=== PATIENT | male | born 1970 | race Caucasian/White ===

== ENCOUNTER 2017-08-08 14:04 | Inpatient (IN) | payer BC, MEDICAID ==
--- NOTE | 2017-08-08 14:39 | C.PDOC ---
History Of Present Illness PRESCREEN FOR DETOX FROM HEROIN. LAST USE THIS MORNING. CURRENTLY CO TRACY. DENIES "USUAL WITHDRAWAL SYMPTOMS". HO CHRONIC SCALP WOUND CURRENTLY BEING EVAL @ [facility], PENDING SKIN GRAFT " UNTIL MORE SKIN GROWS IN". CURRENTLY DOING WET-TO-DRY DRESSING. CHRONIC LEG, ABD WALL AND UPPER BACK WOUNDS FROM PRIOR NEEDLE INSERTION. NO PAIN, REDNESS, DC , FEVER. HO CHRONIC B/L LEG NEUROPATHY DUE TO DM. HO AFIB, CURRENTLY NONCOMPLIANT W ANTICOAG USE. PRIOR HO CARDIOVERSION FOR SAME "BUT IT DIDNT WORK " EXAM NAD NONTOXIC PSYCH CALM COOPERATIVE NO ACUTE DIST NO S/S ACUTE INTOX OR WITHDRAWAL SKIN MULTIPLE CHRONIC WOUNDS, CRATER-LIKE B/L LEGS, ABD WALL. NO ABSCESS, DC, REDNESS. +CHRONIC SCALP WOUND W GRANULOMATOUS TISSUE, NONNECROTIC, CELLULITIS, DC. REMAINDER NEG Time Seen by Provider: 08/08/17 14:18 Chief Complaint (Nursing): Substance Abuse History Per: Patient History/Exam Limitations: no limitations Onset/Duration Of Symptoms: Persistent Current Symptoms Are (Timing): Still Present Modifying Factor(s): Narcotics Associated Symptoms: denies: Suicidal Thoughts, Suicidal Plan Recent travel outside of the [place]: No Past Medical History Reviewed: Historical Data, Nursing Documentation, Vital Signs Vital Signs: Last Vital Signs Temp 97.6 F 08/08/17 16:15 Pulse 87 08/08/17 16:15 Resp 18 08/08/17 16:15 BP 111/77 08/08/17 16:15 Pulse Ox 100 08/08/17 18:31 - Medical History PMH: No Chronic Diseases Family History: States: Unknown Family Hx Review Of Systems Except As Marked, All Systems Reviewed And Found Negative. Constitutional: Negative for: Fever, Chills Cardiovascular: Negative for: Chest Pain, Palpitations Respiratory: Negative for: Cough, Shortness of Breath, Wheezing Gastrointestinal: Negative for: Nausea, Vomiting, Abdominal Pain Skin: Positive for: Lesions (CHRONIC SCALP WOUND) Neurological: Positive for: Headache. Negative for: Dizziness Psych: Negative for: Withdrawal Physical Exam - Physical Exam Appears: Non-toxic, No Acute Distress Skin: Warm, Dry, Other (SKIN MULTIPLE CHRONIC WOUNDS, CRATER-LIKE B/L LEGS, ABD WALL. NO ABSCESS, DC, REDNESS. ) Head: Atraumatic, Normacephalic, Other (+CHRONIC SCALP WOUND W GRANULOMATOUS TISSUE, NONNECROTIC, CELLULITIS, DC. ) Eye(s): bilateral: Normal Inspection Chest: Symmetrical Cardiovascular: Rhythm Regular Respiratory: Normal Breath Sounds, No Rales, No Rhonchi, No Wheezing Gastrointestinal/Abdominal: Soft, No Tenderness, No Guarding, No Rebound, Other (SEE SKIN EXAM) Back: Normal Inspection Extremity: Normal ROM, Other (SEE SKIN EXAM) Neurological/Psych: Oriented x3, Other (PSYCH CALM COOPERATIVE NO ACUTE DIST NO S/S ACUTE INTOX OR WITHDRAWAL) ED Course And Treatment - Laboratory Results Result Diagrams: 08/08/17 16:09 08/08/17 16:09 ECG: Interpreted By Me ECG Rhythm: Atrial Fibrillation Rate From EC O2 Sat by Pulse Oximetry: 100 (RA) Pulse Ox Interpretation: Normal Progress - Re-Evaluation Re-evaluation Note: 08/08/17 14:39 TYLENOL, CLONIDINE, ZOFRAN, MOTRIN. BLOODWORK. CRISIS EVAL. 08/08/17 18:02 MEDICALLY CLEARED FOR PSYCH EVAL. CHRONIC WOUNDS CURRENTLY MANAGED BY PLASTIC SURGEON @ [facility]. RECOMMEND MEDICINE CONSULT NEEDED FOR MANAGEMENT OF AFIB AND DIABETES. CRISIS NOTIFIED 08/08/17 18:31 - Data Reviewed Data Reviewed: Lab, Diagnostic imaging, EKG, Old records Disposition Counseled Patient/Family Regarding: Studies Performed, Diagnosis - Disposition Disposition: HOSPITALIZED Disposition Time: 18:20 Condition: STABLE - POA Present On Arrival: Poor Glycemic Control - Clinical Impression Clinical Impression: Narcotic dependence, Chronic wound of head, Chronic wound of extremity - Scribe Statement The provider has reviewed the documentation as recorded by the Scribe SM All medical record entries made by the Scribe were at my direction and personally dictated by me. I have reviewed the chart and agree that the record accurately reflects my personal performance of the history, physical exam, medical decision making, and the department course for this patient. I have also personally directed, reviewed, and agree with the discharge instructions and disposition. Decision To Admit - Pt Status Changed To: Hospital Disposition Of: Inpatient - Admit Certification Admit to Inpatient:: After my assessment, the patient will require hospitalization for at least two midnights. This is because of the severity of symptoms shown, intensity of services needed, and/or the medical risk in this patient being treated as an outpatient. - InPatient: Physician Admission Certification: I certify that this patient requires 2 or more midnights of care for the following reason:: SEE NOTE - . Bed Request Type: Detox Admitting Physician: Salvatore Osborn Patient Diagnosis: Narcotic dependence, Chronic wound of head, Chronic wound of extremity
[2017-08-08 16:28] LABS: CHLORIDE 101 mmol/L (98-107)
[2017-08-08 16:29] LABS: SODIUM 131 mmol/L (132-148)
[2017-08-08 16:30] LABS: POTASSIUM 5.6 mmol/L (3.6-5.2)
[2017-08-08 16:31] LABS: ALB/GLOB RATIO 0.7 (1.0-2.1); ALKALINE PHOSPHATASE 97 U/L (38-126); AST/SGOT 33 U/L (17-59); BILIRUBIN,TOTAL 1.5 mg/dL (0.2-1.3); BLOOD UREA NITROGEN 22 mg/dL (9-20); CARBON DIOXIDE 24 mmol/L (22-30); GFR AFRICAN-AMERICAN > 60; TOTAL PROTEIN 8.7 g/dL (6.3-8.3)
[2017-08-08 16:32] LABS: ALCOHOL SERUM < 10 mg/dl (0-10); ALT/SGPT 17 U/L (21-72); CALCIUM 7.9 mg/dl (8.6-10.4); GLUCOSE,RANDOM 179 mg/dL (75-110)
[2017-08-08 16:34] LABS: BASO # 0.1 K/uL (0.0-0.2); BASO % 0.7 % (0.0-2.0); EOS # 0.2 K/uL (0.0-0.7); EOS % 1.5 % (0.0-4.0); HEMATOCRIT 38.3 % (35.0-51.0); LYMPH # 2.4 K/uL (1.0-4.3); LYMPH % 17.9 % (20.0-40.0); MEAN CELL VOLUME 81.1 fL (80.0-94.0); MEAN CORPUSCULAR HEMOGLOBIN 25.8 pg (27.0-31.0); MEAN CORPUSCULAR HGB CONC 31.8 g/dL (33.0-37.0); MEAN PLATELET VOLUME 8.3 fL (7.2-11.7); MONO # 0.8 K/uL (0.0-0.8); MONO % 5.8 % (0.0-10.0); NRBC % 0.2 % (0.0-2.0); RED CELL DISTRIBUTION WIDTH 16.7 % (11.5-14.5); WHITE BLOOD COUNT 13.4 K/uL (4.8-10.8)
[2017-08-08 17:29] LABS: RBC URINE 4 /hpf (0-3); URINE BACTERIA RARE (<OCC); URINE BILIRUBIN NEGATIVE (NEGATIVE); URINE BLOOD 1+ (NEGATIVE); URINE COLOR Yellow (YELLOW); URINE GLUCOSE (UA) 1+ mg/dL (Normal); URINE KETONE NEGATIVE (NEGATIVE); URINE LEUKOCYTE ESTERASE NEG Leu/uL (Negative); URINE PROTEIN 2+ mg/dL (NEGATIVE); WBC URINE 1 /hpf (0-5)
[2017-08-08] MEDS: (Lantus) Insulin Glargine, Recombinant SC SCH (22:32)
--- NOTE | 2017-08-09 11:44 | CARD ---
APPROVED REPORT EKG Measurement Heart [id number] <Conclusion> Atrial fibrillation Right axis deviation Abnormal ECG
--- NOTE | 2017-08-09 12:43 | PCM.PSYCH ---
Initial Psychiatric Evaluation - Initial Psychiatric Evaluation Type of Admission: Voluntary Legal Status: Capacity Chief Complaint (in patient's own words): "I'm withdrawing bad" History of Present Illness and Precipitating Events: The patient is seen, chart reviewed and case discussed. This is a 47-year-old male, but no child, unemployed and lives with his . He is a poor historian due to withdrawal symptoms. He uses 20 bags of IV heroin for "many years" He relapsed 5 years ago he states and has been using since then. He also uses Xanax sometimes and it can be up to 2 sticks a day. Smokes 1 pack per day cigarettes but denies alcohol, marijuana and all other drugs. He has been to detox at least 10 times, rehabilitation 5 times and he wants to go to outpatient program in [facility] Past psych history: Denies Family psych history: Denies Medical history: A. fib, diabetes, high blood pressure, obese. Current Medications: Active Medications Generic Name Dose Route Start Last Admin Trade Name Freq PRN Reason Stop Dose Admin Aspirin 81 mg 08/09/17 12:00 08/09/17 12:28 Aspirin Chewable PO 81 mg DAILY VIOLETA Administration Clonidine HCl 0.1 mg 08/09/17 09:55 Catapres PO Q4H PRN opiate withdrawal Furosemide 20 mg 08/09/17 10:00 08/09/17 11:45 Lasix PO 20 mg DAILY VIOLETA Administration Gabapentin 400 mg 08/09/17 10:00 08/09/17 10:16 Neurontin PO 400 mg TID VIOLETA Administration Hydroxyzine HCl 25 mg 08/08/17 20:22 Atarax PO Q6 PRN Anxiety Insulin Glargine 15 unit 08/08/17 22:00 08/08/17 22:32 Lantus SC 15 unit HS VIOLETA Administration Losartan Potassium 100 mg 08/09/17 10:00 08/09/17 11:44 Cozaar PO 100 mg DAILY VIOLETA Administration Metformin HCl 1,000 mg 08/09/17 10:00 08/09/17 10:00 Glucophage PO 1,000 mg BID VIOLETA Administration Methadone HCl 30 mg 08/09/17 10:00 08/09/17 10:16 Methadone PO 08/15/17 09:59 30 mg Q24H VIOLETA Administration Taper Nicotine 1 patch 08/09/17 10:15 08/09/17 11:48 Nicoderm Cq TD 1 patch DAILY VIOLETA Administration Trazodone HCl 100 mg 08/09/17 09:54 Desyrel PO HS PRN Insomnia Past Psychiatric History - Past Psychiatric History Previous Treatment History: None Pertinent Medical Hx (Current Medical&Sleep Prob, Allergies): Allergies Allergy/AdvReac Type Severity Reaction Status Date / Time No Known Allergies Allergy Verified 08/08/17 14:10 Aspirin [Adult Low Dose Aspirin EC] 81 mg PO DAILY 08/08/17 Canagliflozin/Metformin HCl [Invokamet 150 mg-1000 mg] 1 tab PO BID 08/08/17 Furosemide [Lasix] 20 mg PO DAILY 08/08/17 Insulin Degludec [Tresiba Flextouch U-100] 15 unit SQ HS 08/08/17 Losartan Potassium [Cozaar] 100 mg PO DAILY 08/08/17 Omeprazole 40 mg PO DAILY 08/08/17 Review of Systems - Neurological Neurological: UNREMARKABLE - Psychiatric Psychiatric: Abnormal Sleep Pattern, Anxiety, Change in Appetite, Difficulty Concentrating, Irritability. absent: Hallucinations, Homicidal Ideation, Paranoia, Suicidal Ideation Mental Status Examination - Personal Presentation Personal Presentation: Looks older than stated age - Affect Affect: Constricted - Motor Activity Motor Activity: Calm - Reliability in Providing Information Reliability in Providing Information: Good - Speech Speech: Organized - Mood Mood: Anxious - Formal Thought Process Formal Thought Process: No Impairment - Cognitive Functions Orientation: Person, Place, Situation, Time Sensorium: Alert Attention/Concentration: Attentive Estimate of Intelligence: Average Judgement: Intact, as evidence by: Insight regarding need for hospitalization Memory: Recent intact, as evidence by: Ability to recall events of the day, Remote intact, as evidenced by: Abilit to recall sig. life events - Risk Risk: Diminished functioning - Strength & Assets Inventory Strength & Assets Inventory: Cooperative - Limitations Limitations: Other DSM 5 DX - DSM 5 DSM 5 Diagnosis: Opioid withdrawal Opioid use d/o - severe Tobacco use d/o - severe Sedative, hypnotic use d/o- moderate - Recommended/Plan of Treatment Treatment Recommendations and Plan of Treatment: Methadone detox - starting with 30 mg as he claims anything less did not work in the past Wound nurse Medical consult if needed As needed medications Gabapentin for augmentation Attend groups and activities Supportive therapy and psychoeducation [place] for abstinence CBT for relapse prevention Encourage MAT Refer to rehab or IOP Attend self-help groups as well 34 min Projected ELOS: 5-6 days Prognosis: Good with treatment - Smoking Cessation Smoking Cessation Initiated: Yes
[2017-08-09] MEDS: (Lantus) Insulin Glargine, Recombinant SC SCH (21:51)
[2017-08-10] MEDS: (Lantus) Insulin Glargine, Recombinant SC SCH (21:28)
--- NOTE | 2017-08-11 13:40 | PCM.PYCHPN ---
Psychiatric Progress Note - Psychiatric Progress Note Patient seen today, length of contact: 16 min Patient Chief Complaint: "I'm still not well yet" Problems Identified/Issues Discussed: The pt is seen, chart reviewed, case discussed with staff. The pt is compliant with medications and reports no side-effects. Symptoms are improving but needs more time to stabilize. After care discussed, support and psychoeducation given. Medication Change: Yes (detox changes daily) Medical Record Reviewed: Yes Mental Status Examination - Cognitive Function Orientation: Person, Place, Situation, Time Memory: Impaired Attention: Poor Concentration: Poor Association: WNL Fund of Knowledge: WNL - Mood Mood: Anxious - Affect Affect: Constricted - Speech Speech: Appropriate - Formal Thought Process Formal Thought Process: No Impairment - Suicidal Ideation Suicidal Ideation: No - Homicidal Ideation Homicidal Ideation: No Goal/Treatment Plan - Goal/Treatment Plan Need for Continued Stay: Discharge may exacerbated symptoms, Severe functional impairment Progress Toward Problem(s) and Goals/Treatment Plan: Methadone detox continues Wound nurse - help appreciated. Medical consult if needed As needed medications Gabapentin for augmentation Attend groups and activities Supportive therapy and psychoeducation [place] for abstinence CBT for relapse prevention Encourage MAT Refer to rehab or IOP Attend self-help groups as well Estimated Date of D/C: 08/14/17
[2017-08-11 17:18] VITALS: RESP 18
[2017-08-11] MEDS: (Lantus) Insulin Glargine, Recombinant SC SCH (21:49)
--- NOTE | 2017-08-12 10:33 | PCM.PYCHPN ---
Psychiatric Progress Note - Psychiatric Progress Note Patient seen today, length of contact: 17 min Patient Chief Complaint: I am feeling little better Problems Identified/Issues Discussed: Patient seen and evaluated, chart reviewed and discussed with the nurse. The patient reports improvement in his mood but still reports withdrawal symptoms including joint pains, anxiety, headaches and sweating. Patient has some anxiety but denies any suicidal ideation or homicidal ideation. Patient is taking medications and denies any side effects. He needs more time to stabilize. He received methadone 15 mg today. Supportive therapy and psychoeducation were given. Medication Change: Yes (methadone taper) Medical Record Reviewed: Yes Mental Status Examination - Cognitive Function Orientation: Person, Place, Situation, Time Memory: Intact Attention: WNL Concentration: Poor Association: WNL Fund of Knowledge: Poor - Mood Mood: Anxious - Affect Affect: Constricted - Speech Speech: Soft - Formal Thought Process Formal Thought Process: No Impairment - Suicidal Ideation Suicidal Ideation: No - Homicidal Ideation Homicidal Ideation: No Goal/Treatment Plan - Goal/Treatment Plan Need for Continued Stay: Discharge may exacerbated symptoms, Severe functional impairment Progress Toward Problem(s) and Goals/Treatment Plan: Opioid withdrawal Opioid use d/o - severe Tobacco use d/o - severe Sedative, hypnotic use d/o- moderate Methadone taper Wound nurse Medical consult if needed As needed medications Gabapentin for augmentation Attend groups and activities Supportive therapy and psychoeducation [place] for abstinence CBT for relapse prevention Encourage MAT Refer to rehab or IOP Attend self-help groups as well - Smoking Cessation Smoking Cessation Initiated: No
--- NOTE | 2017-08-12 11:02 | PCM.PYCHPN ---
Psychiatric Progress Note - Psychiatric Progress Note Patient seen today, length of contact: 17 min Patient Chief Complaint: "I'm still not well yet" Problems Identified/Issues Discussed: The pt is seen, chart reviewed, case discussed with staff. The pt is compliant with medications and reports no side-effects. Symptoms are improving but needs more time to stabilize. After care discussed, support and psychoeducation given. He is less irate and a little more cooperative Sleep is still an issue - addressed Medication Change: Yes (detox changes daily) Medical Record Reviewed: Yes Mental Status Examination - Cognitive Function Orientation: Person, Place, Situation, Time Memory: Impaired Attention: Poor Concentration: Poor Association: WNL Fund of Knowledge: WNL - Mood Mood: Anxious - Affect Affect: Constricted - Speech Speech: Appropriate - Formal Thought Process Formal Thought Process: No Impairment - Suicidal Ideation Suicidal Ideation: No - Homicidal Ideation Homicidal Ideation: No Goal/Treatment Plan - Goal/Treatment Plan Need for Continued Stay: Discharge may exacerbated symptoms, Severe functional impairment Progress Toward Problem(s) and Goals/Treatment Plan: Methadone detox continues Wound nurse - help appreciated. Medical consult if needed As needed medications Gabapentin for augmentation Attend groups and activities Supportive therapy and psychoeducation [place] for abstinence CBT for relapse prevention Encourage MAT Refer to rehab or IOP Attend self-help groups as well Estimated Date of D/C: 08/14/17
[2017-08-12] MEDS: (Lantus) Insulin Glargine, Recombinant SC SCH (21:54)
--- NOTE | 2017-08-13 10:58 | PCM.PYCHPN ---
Psychiatric Progress Note - Psychiatric Progress Note Patient seen today, length of contact: 17 min Patient Chief Complaint: I am doing better.' Problems Identified/Issues Discussed: Patient seen and evaluated, chart reviewed and discussed with the nurse. The patient reports improvement in the withdrawal symptoms. He reports that methadone is working and denies any side effects. Patient has some anxiety and denies any suicidal ideation or homicidal ideation. He received methadone 10 mg today. He needs more time to stabilize. Supportive therapy and psychoeducation were given. Medication Change: Yes (detox changes daily) Medical Record Reviewed: Yes Mental Status Examination - Cognitive Function Orientation: Person, Place, Situation, Time Memory: Impaired Attention: WNL Concentration: Poor Association: WNL Fund of Knowledge: WNL - Mood Mood: Anxious - Affect Affect: Constricted - Speech Speech: Appropriate - Formal Thought Process Formal Thought Process: No Impairment - Suicidal Ideation Suicidal Ideation: No - Homicidal Ideation Homicidal Ideation: No Goal/Treatment Plan - Goal/Treatment Plan Need for Continued Stay: Discharge may exacerbated symptoms, Severe functional impairment Progress Toward Problem(s) and Goals/Treatment Plan: Opioid withdrawal Opioid use d/o - severe Tobacco use d/o - severe Sedative, hypnotic use d/o- moderate Methadone detox Wound nurse Medical consult if needed As needed medications Gabapentin for augmentation Attend groups and activities Supportive therapy and psychoeducation [place] for abstinence CBT for relapse prevention Encourage MAT Refer to rehab or IOP Attend self-help groups as well Estimated Date of D/C: 08/14/17
[2017-08-13 15:41] VITALS: O2SAT 98
[2017-08-13] MEDS: (Lantus) Insulin Glargine, Recombinant SC SCH (22:09)
[2017-08-14] MEDS ORDERED: Iodixanol 320 MG/ML 200 ML BOTTLE IV ONE (08:10)
--- NOTE | 2017-08-14 08:51 | PCM.PYCHDC ---
Mental Status Examination - Mental Status Examination Orientation: Person Discharge Summary - Discharge Note Laboratory Data: Abnormal Lab Results 08/13/17 08/13/17 08/14/17 16:42 20:30 08:17 POC Glucose (mg/dL) 110 140 H 126 H Consultations:: List each consultation separately and include: 1. Reason for request. 2. Findings. 3. Follow-up Summary of Hospital Course include:: 1. Description of specific treatment plan utilized for patients during their course of treatmen. 2. Summarize the time- course for resolution of acute symptoms and/or regressed behaviors. 3. Describe issues identified and worked on during hospitalization. 4. Describe medication utilized. 5. Describe medical problems identified and treated. 6. Reassessment of suicide risk Summary of Hospital Course: The patient is seen, chart reviewed and case discussed. This is a 47-year-old male, but no child, unemployed and lives with his . He is a poor historian due to withdrawal symptoms. He uses 20 bags of IV heroin for "many years" He relapsed 5 years ago he states and has been using since then. He also uses Xanax sometimes and it can be up to 2 sticks a day. Smokes 1 pack per day cigarettes but denies alcohol, marijuana and all other drugs. He has been to detox at least 10 times, rehabilitation 5 times and he wants to go to outpatient program in [facility] Past psych history: Denies Family psych history: Denies Medical history: A. fib, diabetes, high blood pressure, obese. - Final Diagnosis (DSM 5) Condition upon Discharge: STABLE Disposition: HOME/ ROUTINE Follow-up Treatment Plan: Methadone detox continues Wound nurse - help appreciated. Medical consult if needed As needed medications Gabapentin for augmentation Attend groups and activities Supportive therapy and psychoeducation [place] for abstinence CBT for relapse prevention Encourage MAT Refer to rehab or IOP Attend self-help groups as well Prescriptions/Medication Reconciliation: Gabapentin [Neurontin] 400 mg PO TID #90 cap QUEtiapine [Seroquel] 100 mg PO HS #30 tab traZODone [Desyrel] 100 mg PO HS PRN #30 tab PRN Reason: Insomnia
[2017-08-14 09:18] VITALS: BP 133/80
[2017-08-14 09:52] VITALS: PULSE 97; TEMP 97.4
== END 2017-08-14 09:15 | disposition home or self-care (01) | DRG 744 ==
LOC: C.ER 14:04 → C.7D 18:21
PROC: HZ2ZZZZ Detoxification Services for Substance Abuse Treatment (ICD-10-PCS; principal; 2017-08-08)
PROC: HZ59ZZZ Individual Psychotherapy for Substance Abuse Treatment, Supportive (ICD-10-PCS; 2017-08-08)
PROC: HZ46ZZZ Group Counseling for Substance Abuse Treatment, Psychoeducation (ICD-10-PCS; 2017-08-08)
DX: F11.23 Opioid dependence with withdrawal (principal); E11.41 Type 2 diabetes mellitus with diabetic mononeuropathy; F41.9 Anxiety disorder, unspecified; I48.91 Unspecified atrial fibrillation; F13.10 Sedative, hypnotic or anxiolytic abuse, uncomplicated; F17.210 Nicotine dependence, cigarettes, uncomplicated; Z91.19 Patient's noncompliance with other medical treatment and regimen

== ENCOUNTER 2018-12-05 16:11 | Inpatient (IN) | payer MEDICAID | END 2018-12-08 15:49 | disposition left against medical advice (07) | LOC: C.ER 16:11 → C.6T 12-06 14:36 → C.9E 19:26 → C.6T 21:53 ==